=== PATIENT | female | born 1975 | race Caucasian/White ===

== ENCOUNTER 2017-06-23 12:59 | Emergency (ER) | payer OTHER | END 2017-06-23 15:57 | disposition home or self-care (01) | LOC: ERS 12:59 | DX: E86.0 Dehydration (principal); R55 Syncope and collapse; I10 Essential (primary) hypertension; E78.5 Hyperlipidemia, unspecified; F41.9 Anxiety disorder, unspecified; F32.9 Major depressive disorder, single episode, unspecified; Z79.899 Other long term (current) drug therapy | CPT/HCPCS: 93005; 96360; 96361 ==

== ENCOUNTER 2017-07-25 14:00 | Emergency (ER) | payer OTHER, SELFPAY ==
[2017-07-25 15:36] LABS: #Eosinphils 0.1 thou/uL (0.0-0.7); #Monocytes 0.9 thou/uL (0.11-0.59); #Neutrophils 9.6 thou/uL (1.40-6.50); %Basophils 0.3 % (0.0-1.0); %Lymphocytes 15.9 % (21.0-51.0); %Monocytes 6.9 % (0.0-10.0); %Neutrophils 75.9 % (42.0-75.0); Hemoglobin 14.1 g/dL (12.0-16.0); Mean Corpuscular HGB CONC 33.8 g/dL (32.0-36.0); Mean Corpuscular Hemoglobin 29.9 pg (27.0-31.0); Mean Corpuscular Volume 88.5 fl (81.0-99.0); Platelet Count 258 thou/uL (130-400); RBC Distribution Width 11.9 % (11.5-14.5); White Blood Cell (WBC) Count 12.6 thou/uL (4.8-10.8)
[2017-07-25 15:44] LABS: BHCG - Serum Negative (NEGATIVE); Pregs Control Background? CLEAR/WHITE (CLR/WHITE); Pregs Control Bar Appear? YES (CONTROL BAR)
[2017-07-25 15:54] LABS: Bacteria/HPF 4+ HPF (None Seen); Bilirubin Negative (Negative); Blood, Urine Negative (Negative); Glucose, Urine (Dipstick) Negative (Negative); Leukocyte Trace (Negative); Nitrite Positive (Negative); Protein, Urine (Dipstick) Negative (Neg-Trace); RBC/HPF 0-3 HPF (0-3); Squamous Epithelial 0-3 HPF (0-3); Urobilinogen 0.2 mg/dL (0.2-1.0); WBC/HPF 21-50 HPF (0-3)
[2017-07-25] MEDS ORDERED: Ondansetron ODT 4 MG TAB ONE (15:55)
[2017-07-25 15:56] LABS: Clarity Hazy (Clear)
[2017-07-25 15:56] LABS: ALT (SGPT) 13 U/L (8-55); AST (SGOT) 13 U/L (5-34); Albumin 4.4 g/dL (3.5-5.0); Alkaline Phosphatase 74 U/L (40-150); Anion Gap 14 mmol/L (10-20); BUN (Urea Nitrogen) 16 mg/dL (7.0-18.7); Bilirubin, Total 0.6 mg/dL (0.2-1.2); Calc. Creatinine Clearance 0 mL/min (70-130); Calcium 9.6 mg/dL (7.8-10.44); Carbon Dioxide 25 mmol/L (22-29); Chloride 100 mmol/L (98-107); Estimated GFR-MDRD 67; Globulin 2.7 g/dL (2.4-3.5); Glucose 227 mg/dL (70-105); Protein, Total 7.1 g/dL (6.0-8.3); Sodium 135 mmol/L (136-145)
[2017-07-25 16:01] LABS: Troponin I Less than 0.010 ng/mL (< 0.028)
[2017-07-25 16:03] LABS: Crystals/HPF 1+ CA OXALATE HPF (Negative); Hyaline Casts/LPF 4-6 HYALINE CAST LPF (0-3 Hyaline)
[2017-07-25] MEDS ORDERED: cefTRIAXone\\ROCEPHIN 500 MG VIAL ONE (16:28)
--- NOTE | 2017-08-31 00:01 | EKG ---
Test Reason : Blood Pressure : / mmHG Vent. Rate : 077 BPM Atrial Rate : 077 BPM P-R Int : 140 ms QRS Dur : 078 ms QT Int : 418 ms P-R-T Axes : 029 045 040 degrees QTc Int : 473 ms Normal sinus rhythm Cannot rule out Anterior infarct , age undetermined Abnormal ECG Confirmed by GIL LOPEZ ([id number]), science editor MALIKA BUTLER ([id number]) on 08/31/2017 12:00:22 AM Referred By: Confirmed By:GIL LOPEZ
== END 2017-07-25 17:41 | disposition home or self-care (01) ==
LOC: ERS 14:00
DX: R55 Syncope and collapse (principal); N39.0 Urinary tract infection, site not specified; E78.5 Hyperlipidemia, unspecified; F41.9 Anxiety disorder, unspecified; F32.9 Major depressive disorder, single episode, unspecified; I10 Essential (primary) hypertension
CPT/HCPCS: 36415; 80053; 81003; 81015; 82553; 84484; 84703; 85025; 87077; 87086; 87186; 93005; 94760; 96361; 96365; J0696; Q0162

== ENCOUNTER 2018-09-10 12:49 | Emergency (ER) | payer OTHER | END 2018-09-10 13:08 | disposition home or self-care (01) | LOC: ERS 12:49 | DX: Z76.5 Malingerer [conscious simulation] (principal); R56.9 Unspecified convulsions; F41.9 Anxiety disorder, unspecified; F32.9 Major depressive disorder, single episode, unspecified | CPT/HCPCS: 99284 ==

== ENCOUNTER 2022-11-26 01:26 | Emergency (ER) | payer SELFPAY ==
[2022-11-26] MEDS ORDERED: Dexamethasone 10 MG/ML VIAL ONE (01:53)
== END 2022-11-26 02:23 | disposition home or self-care (01) ==
LOC: ERS 01:26
DX: T78.40XA Allergy, unspecified, initial encounter (principal); E78.5 Hyperlipidemia, unspecified; I10 Essential (primary) hypertension
CPT/HCPCS: 96372; 99283; J1100

== ENCOUNTER 2024-11-17 10:22 | Outpatient (CLI) | payer OTHER | END 2024-11-17 10:23 | disposition home or self-care (01) | LOC: BICMAMMO 10:22 | PROVIDERS: ATTEND Family Medicine | DX: Z12.31 Encounter for screening mammogram for malignant neoplasm of breast (principal) | CPT/HCPCS: 77063; 77067 ==